=== PATIENT | female | born 1970 | race Caucasian/White ===

== ENCOUNTER 2016-12-05 20:17 | Emergency (ER) | payer OTHER ==
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
[~2016-12-05 20:17] MED LIST: ACCURETIC; ACCURETIC 20-251 TAB PO; ALDACTONE25 MG PO; AMIODARONE HCL100 MG PO; AMITRIPTYLINE H25 MG PO; ASPIRIN EC81 M1 PO; ASPIRIN81 M1 PO; ASPIRIN81 M2 PO; BUMEX1 MG PO; CARVEDILOL3.125 MG PO; CELEBREX100 MG PO; COREG3.125 MG PO; FENOFIBRATE160 MG PO; FERRO-TIME325 MG PO; FLAGYL PO; FLEXERIL PO; FLEXERIL10 MG PO; FLONASE16 GM; GLUCOTROL PO; JANUMET 50-1,1 UDTAB PO; LANTUS100 U/M1 SQ; LANTUS100 U/ML SUBQ; LEVEMIR SUBQ; LIPITOR PO; LIPITOR20 MG PO; LISINOPRIL-HCTZ1 T20 PO; MEDROL PO; METFORMIN PO; METOPROLOL SUCC25 MG PO; METOPROLOL TART25 MG PO; MOBIC PO; NITROSTAT0.4 MG SL; NOVOLOG100 U/M2; NOVOLOG100 U/M2 SUBQ; PEPTO-BISM525 MG/15 PO; PHENERGAN25 M1 PO; PHENERGAN25 MG PO; PRENATAL VITAMI1 TA7 PO; PRILOSEC40 MG PO; PROZAC PO; TOPAMAX PO; TOPAMAX200 MG PO; VIBRAMYCIN100 M1 PO; VICODIN 5/500 T1 TAB PO; ZANTAC150 M1 PO; ZOFRAN PO; [UNRECOGNIZED DRUG - CODE] PO
== END 2016-12-05 21:25 | disposition home or self-care (01) ==
LOC: SED 20:17
DX: S16.1XXA Strain of muscle, fascia and tendon at neck level, initial encounter (principal); E11.9 Type 2 diabetes mellitus without complications; I10 Essential (primary) hypertension; Z79.4 Long term (current) use of insulin; V43.62XA Car passenger injured in collision with other type car in traffic accident, initial encounter; Y92.410 Unspecified street and highway as the place of occurrence of the external cause
CPT/HCPCS: 72125; 99284

== ENCOUNTER → 2016-12-30 | Outpatient (CLI) | payer MEDICARE, OTHER ==
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
== END | disposition home or self-care (01) ==
LOC: CGUS 14:38
DX: E04.1 Nontoxic single thyroid nodule (principal); E04.2 Nontoxic multinodular goiter
CPT/HCPCS: 76536

== ENCOUNTER → 2017-02-15 | Outpatient (CLI) | payer MEDICARE, OTHER ==
--- NOTE | ~2017-02-15 | XA230 ---
[facility] A Service of [facility] RADIOLOGY TEXT RESULTS PATIENT: RUPINDER ARROYO LOCATION: [facility] : 72 UNIT #: [id number] AGE: [address]: Joni Allred MD SEX: F ORDER DR: [id number] [facility] [address] [place], [place] [address] [id number] O MR#: [id number] Acc #: [id number] NAME: RUPINDER ARROYO. : 1970 SEX: F STUDY DATE/TIME: 02/15/2017 10:32 UNIT: [facility] ROOM: STUDY DESCRIPTION: XA FNA Attending Physician: Joni Allred M.D. Referring Physician: Joni Allred M.D. Ordering Physician: Joni Allred M.D. Primary Care Physician: Manish Kingston M.D. MEDICAL IMAGING REPORT This report is preliminary unless electronic signature is present EXAM Ultrasound guided thyroid biopsy HISTORY Multinodular goiter with a dominant left-sided nodule. FINDINGS Procedures, attendant risks and options were discussed with the patient. She understands and wished to proceed. Neck was prepped with Chlorhexidine and sterilely draped. Ultrasound was utilized to localize the nodule. Skin was anesthetized with 1% Xylocaine; 25 gauge aspirates were obtained of the nodule x3 under direct ultrasound visualization and guidance. [place] were removed. Hemostasis achieved. Permanent ultrasound images were recorded. CONCLUSION Technically successful aspiration of the patient's left lobe thyroid nodule. Dictated by... Sergio Pink M.D. THIS IS AN ELECTRONICALLY VERIFIED REPORT Sergio Pink M.D. at 02/16/2017 3:38 PM LE/bronson TD: 02/15/2017 19:53 JOB #: [id number] MEDICAL IMAGING REPORT Page 1 of 1 COPY
== END | disposition home or self-care (01) ==
LOC: CIVR 09:53
DX: E04.2 Nontoxic multinodular goiter (principal)
CPT/HCPCS: 76942; 88173; 88305